=== PATIENT | male | born 1955 | race African-American/Black ===

== ENCOUNTER 2018-04-25 05:15 | Inpatient (IN) | payer MEDICAID, OTHER ==
[~2018-04-25] VITALS: Ht 180.3 cm; Wt 103.9 kg
[2018-04-25] VITALS (49 sets, daily range): BP systolic 110–198; BP diastolic 56–127
[2018-04-25 06:32] LABS: *AMPHETAMINES SCREEN URINE NEGATIVE (NEGATIVE); *BARBITURATES SCREEN URINE NEGATIVE (NEGATIVE); *COCAINE SCREEN URINE PRESUMTIVE POSITIVE (NEGATIVE)
[2018-04-25 06:33] LABS: *BENZODIAZEPINES SCREEN URINE NEGATIVE (NEGATIVE); CANNABINOID URINE SCREEN NEGATIVE (NEGATIVE); METHADONE URINE SCREEN NEGATIVE (NEGATIVE); OPIATES URINE SCREEN NEGATIVE (NEGATIVE); PHENCYCLIDINE URINE SCREEN NEGATIVE (NEGATIVE)
[2018-04-25] MEDS ORDERED: THROMBIN (BOVINE) 5000 UNITS/VIAL TOP ONE (06:33)
[2018-04-25] MEDS ORDERED: GELATIN SPONGE,ABSORBABLE 12-7MM SPONGE ONE (06:33)
[2018-04-25] MEDS ORDERED: BACITRACIN 50,000 UNITS/VIAL ONE (06:34)
[2018-04-25] MEDS ORDERED: LIDOCAINE HCL/EPINEPHRINE 1%-EPI 1:100,000 20 ML VIAL ONE (06:34)
[2018-04-25 06:35] LABS: BASOPHILS % 1.3 % (0.0-2.0); EOSINOPHILS % 5.4 % (0.0-5.0); HEMATOCRIT. 40.6 % (42.0-52.0); HEMOGLOBIN. 12.9 g/dL (14.0-18.0); LYMPHOCYTES % 35.7 % (20.0-50.0); MEAN CORPUSCULAR HEMOGLOBIN 23.2 pg (28.0-32.0); MEAN CORPUSCULAR VOLUME 73.3 fL (80.0-94.0); MONOCYTES % 10.3 % (2.0-8.0); NEUTROPHILS % 47.3 % (40.0-76.0); PLATELET 210 x1000/uL (130-400); RED BLOOD CELL COUNT 5.54 mill/uL (4.7-6.1); RED CELL DISTRIBUTION WIDTH 15.7 % (11.6-14.6)
[2018-04-25] MEDS ORDERED: ROCURONIUM BROMIDE 10MG/ML VIAL 5ML IV ONE (07:12)
[2018-04-25] MEDS ORDERED: MIDAZOLAM HCL 2 MG/2 ML VIAL ONE (07:13)
[2018-04-25] MEDS ORDERED: FENTANYL CITRATE/PF 50MCG/ML 5ML VIAL ONE (07:13)
[2018-04-25] MEDS ORDERED: PROPOFOL 10MG/ML 100ML 0 ML IV ONE (07:14)
[2018-04-25] MEDS ORDERED: SUCCINYLCHOLINE CHLORIDE 200MG/10ML IV ONE (07:15)
[2018-04-25] MEDS ORDERED: ONDANSETRON HCL 4MG/2ML INJ ONE (07:15)
[2018-04-25] MEDS ORDERED: METOCLOPRAMIDE HCL 10MG/2ML VIAL ONE (07:15)
[2018-04-25] MEDS ORDERED: CLINDAMYCIN 900 MG in SODIUM CHLORIDE 0.9% 50 ML IV SCH (07:15)
[2018-04-25] MEDS ORDERED: DEXAMETHASONE 4MG/ML 1ML VIAL ONE ×2 (07:18→07:20)
[2018-04-25] MEDS ORDERED: NICARDIPINE 50 MG in SODIUM CHLORIDE 0.9% 230 ML IV PRN (07:30)
[2018-04-25] MEDS ORDERED: ONDANSETRON HCL 4MG/2ML INJ IV PRN ×2 (07:30→08:45)
[2018-04-25] MEDS ORDERED: PROPOFOL 10MG/ML 100ML 200 ML IV ONE (07:43)
[2018-04-25] MEDS ORDERED: PHENYLEPHRINE HCL 10 MG/ML 1ML (IV VIAL) IV ONE (07:50)
[2018-04-25] MEDS ORDERED: VECURONIUM BROMIDE 10 MG/VIAL IV ONE (07:50)
[2018-04-25] MEDS ORDERED: AMLO5TAB88 PO (08:01)
[2018-04-25] MEDS ORDERED: MEPERIDINE HCL/PF 25MG/ML CPJ IV PRN (08:45)
[2018-04-25] MEDS ORDERED: FENTANYL CITRATE/PF 50MCG/ML 2ML VIAL IV PRN (08:45)
[2018-04-25] MEDS ORDERED: MORPHINE SULFATE 4 MG/ML CPJ (NOT FOR IM USE) IV PRN (08:45)
[2018-04-25] MEDS ORDERED: HYDROMORPHONE HCL/PF 2MG/ML CPJ IV PRN (08:45)
[2018-04-25] MEDS ORDERED: GLYCOPYRROLATE 0.2 MG/ML 2ML VIAL ONE (08:53)
[2018-04-25] MEDS ORDERED: NEOSTIGMINE METHYLSULFATE 1MG/ML 10 ML VIAL ONE (08:53)
[2018-04-25] MEDS ORDERED: NALOXONE INJ IV PRN (10:00)
[2018-04-25] MEDS ORDERED: HYDROMORPHONE PCA 10MG/50ML IV PRN (10:00)
[2018-04-25] MEDS ORDERED: DIPHENHYDRAMINE INJ IV PRN (10:00)
[2018-04-25] MEDS ORDERED: ONDANSETRON INJ IV PRN (10:00)
[2018-04-25] MEDS: DEXT 5%/LACTATED RINGERS 1,000 ML IV SCH ×2 (10:09→18:02)
[2018-04-25] MEDS: NITROPRUSSIDE 50 MG in SODIUM CHLORIDE 0.9% 248 ML IV PRN ×2 (10:11→22:24)
[2018-04-25] MEDS ORDERED: MEPERIDINE HCL/PF 50MG/ML CPJ IV PRN (10:24)
[2018-04-25] MEDS: AMLODIPINE 5MG TABLET PO SCH ×2 (11:30→15:18)
[2018-04-25] MEDS: PANTOPRAZOLE SODIUM 40 MG/VIAL IV SCH (12:04)
[2018-04-25] MEDS: DEXAMETHASONE 4MG/ML 1ML VIAL IV SCH ×3 (12:04→23:22)
[2018-04-25] MEDS: CLINDAMYCIN 600 MG in DEXTROSE 5% WATER 50 ML IV SCH ×2 (18:02→23:22)
[2018-04-26] VITALS (64 sets, daily range): BP systolic 34–176; BP diastolic 18–113
[2018-04-26] MEDS: DEXT 5%/LACTATED RINGERS 1,000 ML IV SCH (03:04)
[2018-04-26 06:00] LABS: HEMOGLOBIN. 11.7 g/dL (14.0-18.0); LYMPHOCYTES % 8.2 % (20.0-50.0); MEAN CORPUSCULAR HEMOGLOBIN 23.4 pg (28.0-32.0); MEAN CORPUSCULAR VOLUME 73.7 fL (80.0-94.0); MEAN PLATELET VOLUME 9.4 fl (7.4-10.4); MONOCYTES % 3.4 % (2.0-8.0); NEUTROPHILS % 88.4 % (40.0-76.0); PLATELET 209 x1000/uL (130-400); RED BLOOD CELL COUNT 5.02 mill/uL (4.7-6.1); RED CELL DISTRIBUTION WIDTH 16.1 % (11.6-14.6)
[2018-04-26 06:03] LABS: CHLORIDE 104 mEq/L (98-107)
[2018-04-26 06:16] LABS: PHOSPHORUS 3.4 mg/dL (2.5-4.9)
[2018-04-26] MEDS: CLINDAMYCIN 600 MG in DEXTROSE 5% WATER 50 ML IV SCH ×2 (06:35→15:30)
[2018-04-26] MEDS: DEXAMETHASONE 4MG/ML 1ML VIAL IV SCH ×5 (06:35→23:00)
[2018-04-26] MEDS ORDERED: HYDROMORPHONE HCL/PF 2MG/ML CPJ IV SCH (08:45)
[2018-04-26] MEDS: PANTOPRAZOLE SODIUM 40 MG/VIAL IV SCH (09:12)
[2018-04-26] MEDS: AMLODIPINE 5MG TABLET PO SCH ×2 (09:12→21:01)
[2018-04-26] MEDS ORDERED: CLONIDINE 0.1MG TABLET PO PRN (15:30)
[2018-04-26] MEDS: LOSARTAN POTASSIUM 50 MG TABLET PO SCH (15:46)
[2018-04-26] MEDS: PANTOPRAZOLE 40MG DR TABLET PO SCH (19:16)
[2018-04-26] MEDS: HYDROCODONE/ACETAMINOPHEN 5/325MG TABLET PO PRN (21:01)
[2018-04-27] VITALS (26 sets, daily range): BP systolic 103–164; BP diastolic 49–109
[2018-04-27] MEDS: HYDROCODONE/ACETAMINOPHEN 5/325MG TABLET PO PRN (03:55)
[2018-04-27 05:44] LABS: HEMATOCRIT. 38.7 % (42.0-52.0); HEMOGLOBIN. 12.4 g/dL (14.0-18.0); MEAN CORPUSCULAR HEMOGLOBIN 23.4 pg (28.0-32.0); MEAN CORPUSCULAR VOLUME 73.2 fL (80.0-94.0); MEAN PLATELET VOLUME 9.6 fl (7.4-10.4); PLATELET 219 x1000/uL (130-400); RED BLOOD CELL COUNT 5.29 mill/uL (4.7-6.1); RED CELL DISTRIBUTION WIDTH 15.6 % (11.6-14.6)
[2018-04-27 05:52] LABS: CHLORIDE 105 mEq/L (98-107)
[2018-04-27] MEDS: DEXAMETHASONE 4MG/ML 1ML VIAL IV SCH ×2 (06:02→12:00)
[2018-04-27] MEDS: PANTOPRAZOLE 40MG DR TABLET PO SCH (06:02)
[2018-04-27] MEDS: AMLODIPINE 5MG TABLET PO SCH (09:27)
[2018-04-27] MEDS: LOSARTAN POTASSIUM 50 MG TABLET PO SCH (09:27)
[2018-04-27] MEDS ORDERED: THROAT LOZENGES-BENZOCAINE/MENTH/CETYLPYRD CL LOZENGES MM PRN (09:30)
[2018-04-27] MEDS ORDERED: LOSA50TA3 PO (15:10)
[2018-04-27 17:52] LABS: PLATELET ESTIMATE NORMAL
== END 2018-04-27 17:45 | disposition home or self-care (01) | DRG 23 ==
LOC: OR 05:15 → MICUSO 05:16
PROVIDERS: ADMIT Internal Medicine; ATTEND Internal Medicine
PROC: 0RB30ZZ Excision of Cervical Vertebral Disc, Open Approach (ICD-10-PCS; 2018-04-25)
PROC: 0RG10A0 Fusion of Cervical Vertebral Joint with Interbody Fusion Device, Anterior Approach, Anterior Column, Open Approach (ICD-10-PCS; principal; 2018-04-25 07:00)
DX: G95.20 Unspecified cord compression (principal); M47.12 Other spondylosis with myelopathy, cervical region; E83.51 Hypocalcemia; M48.02 Spinal stenosis, cervical region; G82.50 Quadriplegia, unspecified; M47.22 Other spondylosis with radiculopathy, cervical region; F14.10 Cocaine abuse, uncomplicated; I10 Essential (primary) hypertension; F17.210 Nicotine dependence, cigarettes, uncomplicated; Z87.11 Personal history of peptic ulcer disease; Z88.0 Allergy status to penicillin; Z88.6 Allergy status to analgesic agent
CPT/HCPCS: 36415; 71045; 72040; 72141; 80048; 80305; 82962; 83735; 84100; 86850; 86900; 88304; 88311; 92610; 93970; 95925; 95926; 95928; 97110; 97116; 97162; 97166; C1713; C9113; J0330; J1100; J1170; J2250; J2370; J2405; J2704; J2710; J2765; J3010; J3490; J7050; J7060; J7121; L0172